=== PATIENT | female | born 1995 | race Caucasian/White ===

== ENCOUNTER 2016-09-22 06:14 | Emergency (ER) | payer SELFPAY | END 2016-09-22 10:50 | disposition home or self-care (01) | LOC: ER1 06:14 | DX: S13.4XXA Sprain of ligaments of cervical spine, initial encounter (principal); J06.9 Acute upper respiratory infection, unspecified; R51 Headache; V44.5XXA Car driver injured in collision with heavy transport vehicle or bus in traffic accident, initial encounter; Y93.89 Activity, other specified; Y92.410 Unspecified street and highway as the place of occurrence of the external cause | CPT/HCPCS: 36415; 70450; 71020; 72125; 84703; 99284 ==

== ENCOUNTER → 2021-11-03 | Outpatient (CLI) | payer BC | LOC: KOH-I 10:35 | DX: M54.2 Cervicalgia (principal); M54.50 Low back pain, unspecified; M54.6 Pain in thoracic spine; M41.86 Other forms of scoliosis, lumbar region | CPT/HCPCS: 72040; 72070; 72100 ==